=== PATIENT | male | born 1965 | race Caucasian/White ===

== ENCOUNTER 2019-02-17 21:34 | Emergency (ER) ==
[2019-02-17 21:46] VITALS: BP 165/94; TEMP 98.3; BMI 22.7
--- NOTE | 2019-02-17 22:30 | ED.PDOC ---
General ED Provider: Dr. MYRA CARTER Chief Complaint: Extremity Swelling/Pain Stated Complaint: 53 y old cau male outo me layla began eperiencing appatrently musculart pains in r groin or gera tyhigh area,Possibly crAMPS,nOT SURE. Time Seen by Physician: 22:24 Mode of Arrival: Walk-In Information Source: Patient Exam Limitations: No limitations Primary Care Provider: ZEYNEP WINTERS Nursing and Triage Documentation Reviewed and Agree: Yes Does patient meet sepsis criteria?: No System Inflammatory Response Syndrome: Not Applicable Sepsis Protocol: For patient's 13 years and over: Temp is 96.8 and below OR 101 and greater Pulse >90 BPM Resp >20/minute Acutely Altered Mental Status Are patient's symptoms suggestive of a new infection, such as: -Pneumonia -Skin, Soft Tissue -Endocarditis -UTI -Bone, Joint Infection -Implantable Device -Acute Abdominal Infection -Wound Infection -Meningitis -Blood Stream Catheter Infection -Unknown Musculoskeletal Complaint Exam - Hip/Pelvis Complaint/Exam Onset/Duration: APPARENTLY A CHRONIC PONSET ,WORK refrigeration mechanic helper Symptoms Are: Still present Initial Severity: Moderate Current Severity: Mild Location: Reports: Diffuse Character: Reports: Aching Aggravating: Reports: Movement Alleviating: Reports: Rest, Position Associated Signs and Symptoms: Reports: Weakness Related History: Reports: Similar episode, Occupational injury Able to Bear Weight: Yes Septic Arthritis Risk Factors: Reports: None Related Surgical History: Reports: None Pelvis Palpation: Stable Tenderness: Present: Right, Ischium Range of Motion Limited In: Present: Flexion, Extension NV Bundle Intact Distal to Injury: Yes (intact) Differential Diagnoses: Arthritis, Hematoma, Sprain, Strain, Tenosynovitis, Other Review of Systems - Review Of Systems Constitutional: Reports: No symptoms Eyes: Reports: No symptoms Ears, Nose, Mouth, Throat: Reports: No symptoms Respiratory: Reports: No symptoms Cardiac: Reports: No symptoms GI: Reports: No symptoms : Reports: No symptoms Musculoskeletal: Reports: Muscle pain, Muscle stiffness Neurological: Reports: No symptoms Endocrine: Reports: No symptoms Hematologic/Lymphatic: Reports: Swollen glands All Other Systems: Reviewed and Negative Past Medical History - Past Medical History Endocrine: Reports: None Cardiovascular: Reports: None Respiratory: Reports: None Hematological: Reports: None Gastrointestinal: Reports: None Genitourinary: Reports: None Neuro/Psych: Reports: None Musculoskeletal: Reports: None Cancer: Reports: None - Surgical History General Surgical History: Reports: None - Family History Family History: Reports: None - Social History Smoking Status: Never smoker Hx Substance Use: No Alcohol Screening: Occasionally - Immunizations Tetanus Shot up to Date: No Physical Exam - Physical Exam Appearance: Well-appearing Ill-appearing: None Pain Distress: Moderate Eyes: CAROL, EOMI, Conjunctiva clear ENT: Ears normal, Nose normal, Oropharynx normal Neck: Supple Respiratory: Airway patent, Breath sounds clear Cardiovascular: RRR, Pulses normal GI/: Soft, Nontender, No masses Musculoskeletal: Normal strength, ROM intact Skin: Warm, Dry, Normal color Neurological: Sensation intact, Alert, Oriented Psychiatric: Affect appropriate Critical Care Note - Critical Care Note Total Time (mins): 0 Course - Course Hematology/Chemistry: 02/17/19 23:07 02/17/19 23:07 Orders, Labs, Meds: Lab Review 02/17/19 02/17/19 23:07 23:07 WBC 4.84 RBC 4.89 Hgb 15.2 Hct 43.1 MCV 88.1 MCH 31.1 H MCHC 35.3 RDW Coeff of Mauro 13.2 Plt Count 187 Immature Gran % (Auto) 0.4 Neut % (Auto) 55.2 Lymph % (Auto) 34.3 Bracken % (Auto) 9.1 Eos % (Auto) 0.6 Baso % (Auto) 0.4 Immature Gran # (Auto) 0.0 Neut # (Auto) 2.7 Lymph # (Auto) 1.7 Bracken # (Auto) 0.4 Eos # (Auto) 0.0 Baso # (Auto) 0.0 Sodium 138.0 Potassium 3.42 L Chloride 100.7 Carbon Dioxide 26.0 Anion Gap 14.72 BUN 6.0 L Creatinine 0.97 Estimated GFR (MDRD) 81.00 BUN/Creatinine Ratio 6.18 Glucose 102.4 Calcium 9.62 Total Bilirubin 0.58 AST 35.8 ALT 22.0 Alkaline Phosphatase 71.9 Total Protein 7.40 Albumin 4.65 Globulin 2.75 Albumin/Globulin Ratio 1.69 Orders Category Date Time Status IV [ED IV/MEDIPORT/POWERPORT] .ONCE EMERGENCY 02/17/19 23:06 Inactive CBC W/ AUTO DIFF Stat LAB 02/17/19 23:07 Completed COMPREHENSIVE METABOLIC PANEL Stat LAB 02/17/19 23:07 Completed 0.9 % Sodium Chloride [Saline Flush] MEDS 02/17/19 23:06 Ordered 1 syr IVF PRN PRN Potassium Chloride [K-Dur] MEDS 02/18/19 00:26 Stat 40 meq PO ONCE STA Sodium Chloride 0.9% [Sodium Chloride] 1,000 ml MEDS 02/17/19 23:04 Discontinued IV BOLUS HIP, RIGHT 2 VIEWS Stat RADS 02/17/19 22:58 Completed PELVIS 1 OR 2 VIEWS Stat RADS 02/17/19 22:58 Completed Medications Generic Name Dose Route Start Last Admin Trade Name Freq PRN Reason Stop Dose Admin Sodium Chloride 1 syr 02/17/19 23:06 Saline Flush IVF PRN PRN To flush IV Discontinued Medications Generic Name Dose Route Start Last Admin Trade Name Freq PRN Reason Stop Dose Admin Sodium Chloride 1,000 mls @ 1,000 mls/hr 02/17/19 23:04 Sodium Chloride IV 02/18/19 00:03 BOLUS STA Potassium Chloride 40 meq 02/18/19 00:26 K-Dur PO 02/18/19 00:27 ONCE STA Vital Signs: Temp Pulse Resp BP Pulse Ox 02/17/19 21:34 98.3 F 66 20 165/94 H 96 Departure - Departure Time of Disposition: 00:32 Disposition: HOME SELF-CARE Discharge Problem: Myalgia and myositis Instructions: Musculoskeletal Pain (ED) Condition: Good Pt referred to PMD for follow-up: Yes IPMP verified?: No Additional Instructions: Patient adviced to consume more water-fluids and hisa chemistries and x rays were discussed including r femur bone island 2mm fu in 12 mo. Allergies/Adverse Reactions: Allergies No Known Allergies Allergy (Verified 02/17/19 21:46) Home Medications: Ambulatory Orders Bisoprolol Fumarate/Hctz [Bisoprolol-Hctz 10-6.25 Mg Tab] 1 each PO DAILY Disposition Discussed With: Patient, Family
--- NOTE | 2019-02-17 23:32 | DI ---
EXAM: AP pelvis. HISTORY: Pain. No history of trauma. FINDINGS: The bones are intact with no evidence of fracture. The joint spaces are maintained. No so ft tissue abnormality. Impression: Negative pelvis.
--- NOTE | 2019-02-17 23:33 | DI ---
EXAM: Two-view right hip. HISTORY: Progressive myalgia right hip. No history of trauma. FINDINGS: The bones are intact with no evidence of fracture. The right hip joint space is maintained . No soft tissue abnormality. There is a 2 mm bone island in the proximal right femur. Impression: No acute findings in the right hip. 2 mm bone island as described.
[2019-02-18] MEDS: K-DUR PO STA (00:35)
[2019-02-18] MEDS: SODIUM CHLORIDE 1,000 ML IV STA (00:36)
== END 2019-02-18 00:40 | disposition home or self-care (01) ==
LOC: ED 21:34
DX: M79.651 Pain in right thigh (principal); R10.30 Lower abdominal pain, unspecified; R53.1 Weakness; R59.0 Localized enlarged lymph nodes; M60.9 Myositis, unspecified
CPT/HCPCS: 36415; 80053; 85025; 99283